=== PATIENT | female | born 1985 | race Two or more races ===

== ENCOUNTER 2023-12-24 08:47 | Outpatient (CLI) | payer OTHER ==
[2023-12-24 11:31] LABS: HEMATOCRIT 38.3 % (36.0-45.00); HEMOGLOBIN 13.1 g/dL (12.0-15.00); MEAN CELL VOLUME 92.6 fL (80.00-100.00); MEAN CORPUSCULAR HEMOGLOBIN 31.6 pg (27.00-32.0); MEAN CORPUSCULAR HGB CONC 34.2 g/dl (32.0-36.0); PLATELET COUNT 263 K/uL (150-450); RED BLOOD COUNT 4.14 M/uL (4.00-6.00); RED CELL DISTRIBUTION WIDTH 14.3 % (11.5-14.5)
[2023-12-24 11:49] LABS: ERYTHROCYTE SEDIMENTATION RATE 9 mm/hr
[2023-12-24 12:15] LABS: PH,URINE 6.5 (5.0-8.0); URINE APPEARANCE Clear; URINE BILIRRUBIN Negative (NEGATIVE); URINE BLOOD Small; URINE COLOR Yellow; URINE GLUCOSE Negative (NEGATIVE); URINE LEUKOCYTE Negative; URINE NITRATE Negative; URINE PROTEIN Negative (NEGATIVE)
[2023-12-24 12:17] LABS: URINE BACTERIA 156.1 uL (0.0-1933); URINE EPITHELIAL CELLS 8.6 uL (0.0-38.8); URINE RBC 63.9 uL (0.0-20.8)
[2023-12-24 12:31] LABS: ALBUMIN 3.9 gm/dL (3.4-5.0); BILIRUBIN TOTAL 0.48 mg/dL (0.3-1.2); CHOL HDL RATIO 1.9 (0-5.0); CREATININE SERUM 0.89 mg/dL (0.55-1.02); GFR 71.76; GLOBULINA 3.7 G/DL (2.4-3.5); POTASSIUM 5.11 mEq/L (3.5-5.1); TOTAL PROTEIN 7.6 gm/dL (6.4-8.2); TSH 0.854 uIU/mL (0.358-3.74)
[2023-12-25 11:33] LABS: FOLIC ACID 15.11 ng/ml (4.78-20); VITAMIN D3 25 HYDROXY 31.72 ng/ml (30-120)
== END 2023-12-24 08:54 | disposition home or self-care (01) ==
LOC: LAB 08:47
DX: D64.9 Anemia, unspecified (principal); N39.0 Urinary tract infection, site not specified; E11.9 Type 2 diabetes mellitus without complications; E78.5 Hyperlipidemia, unspecified; E03.8 Other specified hypothyroidism; E21.3 Hyperparathyroidism, unspecified; R73.9 Hyperglycemia, unspecified; E55.9 Vitamin D deficiency, unspecified; A53.9 Syphilis, unspecified; G30.0 Alzheimer's disease with early onset; R21 Rash and other nonspecific skin eruption; B20 Human immunodeficiency virus [HIV] disease; A74.9 Chlamydial infection, unspecified; A54.9 Gonococcal infection, unspecified; B00.9 Herpesviral infection, unspecified; M25.50 Pain in unspecified joint